=== PATIENT | male | born 2000 | race African-American/Black ===

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

== ENCOUNTER 2018-03-04 00:22 | Emergency (ER) | payer OTHER ==
[2018-03-04] MEDS: KETOROLAC 60 MG/2 ML VIAL (J1885) IM ×2 (02:26)
== END 2018-03-04 02:31 | disposition home or self-care (01) ==
LOC: M ED 00:22
DX: T22.111A Burn of first degree of right forearm, initial encounter (principal); T22.141A Burn of first degree of right axilla, initial encounter; X19.XXXA Contact with other heat and hot substances, initial encounter; Y92.096 Garden or yard of other non-institutional residence as the place of occurrence of the external cause; Y93.G2 Activity, grilling and smoking food
CPT/HCPCS: J1885

== ENCOUNTER 2018-06-28 11:39 | Emergency (ER) | payer OTHER ==
[2018-06-28 12:23] LABS: EOS # 0.1 10^3/uL (0.0-0.50); EOS % 1.2 % (0.0-3.0); HEMATOCRIT 48.4 % (42.0-52.0); HEMOGLOBIN 17.3 g/dl (13.5-17.5); IMMATURE GRANULOCYTE % 0.5 % (0-3.0); LYMPH # 1.6 10^3/uL (1.5-6.5); LYMPH % 37.8 % (24.0-44.0); MEAN CORPUSCULAR HEMOGLOBIN 29.4 pg (27.0-33.0); MEAN CORPUSCULAR HGB CONC 35.7 g/dl (32.0-36.5); MEAN CORPUSCULAR VOLUME 82.3 fl (80.0-96.0); MONO # 0.4 10^3/uL (0.0-0.8); MONO % 8.6 % (0.0-5.0); NEUTROPHILS # 2.2 10^3/uL (1.8-7.7); NEUTROPHILS % 50.9 % (36.0-66.0); PLATELET COUNT, AUTOMATED 242 10^3/uL (150-450); RED BLOOD COUNT 5.88 10^6/uL (4.30-6.10); RED CELL DISTRIBUTION WIDTH 11.9 % (11.5-14.5); WHITE BLOOD COUNT 4.2 10^3/uL (4.0-10.0)
[2018-06-28 12:27] LABS: KETONE, URINE AUTO RFX NEGATIVE (NEGATIVE); LEUKOCYTE ESTERASE UR AUTO RFX NEGATIVE (NEGATIVE); MUCUS, URINE RFX SMALL (NEGATIVE); NITRITE, URINE AUTO RFX NEGATIVE (NEGATIVE); RBC, URINE AUTO RFX 0 /HPF (0-3); SQUAM EPITHELIAL CELL UR AURFX 0 /HPF (0-6); WBC, URINE AUTO RFX 0 /HPF (0-3)
[2018-06-28 12:43] LABS: ANION GAP 8 MEQ/L (8-16); BLOOD UREA NITROGEN 12 MG/DL (7-18); CALCIUM LEVEL 9.3 MG/DL (8.5-10.1); CARBON DIOXIDE LEVEL 27 MEQ/L (21-32); CHLORIDE LEVEL 106 MEQ/L (98-107); CREATININE FOR GFR 1.13 MG/DL (0.70-1.30); GLUCOSE, FASTING 92 MG/DL (70-100); POTASSIUM SERUM 4.4 MEQ/L (3.5-5.1); SODIUM LEVEL 141 MEQ/L (136-145)
[2018-06-28 13:51] LABS: CHLAMYDIA DNA AMPLIFICATION NEGATIVE (NEGATIVE); GC DNA AMPLIFICATION NEGATIVE (NEGATIVE)
== END 2018-06-28 14:12 | disposition home or self-care (01) ==
LOC: M ED 11:39
DX: M54.5 Low back pain (principal)
CPT/HCPCS: 76775

== ENCOUNTER 2018-12-31 18:50 | Emergency (ER) | payer OTHER ==
[~2018-12-31] VITALS: Ht 175.3 cm; Wt 84.8 kg
[~2018-12-31 18:50] MED LIST: IBUP80TA PO
[2018-12-31] MEDS ORDERED: IBUPROFEN 600 MG TAB PO ONE (21:30)
[2018-12-31 22:25] LABS: INFLUENZA A AMPLIFICATION POSITIVE (NEGATIVE); INFLUENZA B AMPLIFICATION NEGATIVE (NEGATIVE)
[2018-12-31] MEDS ORDERED: IBUP-1114 PO (22:40)
[2018-12-31] MEDS ORDERED: ACET1TAB55 PO (22:40)
[2018-12-31] MEDS ORDERED: OSEL75CA PO (22:40)
[2018-12-31] MEDS ORDERED: OSELTAMIVIR PHOSPHATE 75 MG CAP (TAMIFLU) PO ONE (22:45)
[2018-12-31 22:55] VITALS: BP 147/81
== END 2018-12-31 22:56 | disposition home or self-care (01) ==
LOC: M ED 18:50
DX: J09.X2 Influenza due to identified novel influenza A virus with other respiratory manifestations (principal)